=== PATIENT | female | born 1990 | race Caucasian/White ===

== ENCOUNTER 2024-05-06 12:34 | Emergency (ER) | payer MEDICAID, SELFPAY ==
[2024-05-06 12:35] VITALS: BP 114/70; PULSE 93; RESP 15; TEMP 36.2; O2SAT 97; BMI 36.7
--- NOTE | 2024-05-06 12:59 | RAD_ITS ---
STUDY: X-RAY - RIGHT ANKLE REASON FOR EXAM: Female, 34 years old. Injury 6 days ago. Lateral pain. TECHNIQUE: 3 view(s) of the ankle. COMPARISON: None. FINDINGS: Normal visualized distal tibia and fibula. Normal medial and lateral malleoli. Normal tibiotalar articulation and ankle mortise. Normal visualized talus and calcaneus. The visualized subtalar, talonavicular, calcaneocuboid and tarsal articulations are normal. The soft tissue structures are unremarkable. RAD/Ankle min 3 Views IMPRESSION: Normal x-ray examination of the ankle. Electronically Signed: Venkat Harrison MD at 13:43 EDT ,
--- NOTE | 2024-05-06 13:36 | EX.ED.DYSGE1 ---
HPI History of Present Illness Chief Complaint: Lower Extremity Injury Detail of Chief Complaint: Patient presents with ankle pain since the . Informant: patient Onset/Context/Timing Onset: Days Context: Sudden Onset Timing: Continuous Quality: Localized to the lateral aspect of the ankle. Location: Proximity of the anterior talofibular ligament Current Severity: Mild Maximum Severity: Moderate Worsened by: Movement and weightbearing Relieved by: Rest Associated Symptoms Associated Symptoms: Pain shooting up towards her knee Narrative Narrative: patient is a 34-year-old woman. She presents because of injury to her ankle. She had a plantar eversion mechanism injury on April 30. She jumped in the pool. She reports pain with movement. She denies prior history of trauma. Denies history of numbness or tingling in her foot or ankle. She had no direct trauma to her toes, foot, ankle or knee. Prior similar symptoms: No Recent Illness/Hospitalization: No PFSH PFSH Medical History no medical history Home Medications ?Medication ?Instructions ?Recorded ?Last Taken ?Type NK 05/06/24 Unknown History Allergy/AdvReac Type Severity Reaction Status Date / Time ibuprofen Allergy Mild Vomiting Verified 05/06/24 12:38 tramadol Allergy Mild Rash Verified 05/06/24 12:38 Social History Smoking Status: Current every day smoker tobacco type: cigarettes and e-cigarettes ROS ROS ED Constitutional Constitutional ED: Denies chills, fever(s), subjective or sweats Musculoskeletal Musculoskeletal: Reports other Details: Right ankle pain. ; Denies arthralgias, back pain, myalgias or neck pain Integumentary Denies rash Neurologic Neurologic: Denies paresthesias or weakness Hematologic/Lymphatic Hematologic/Lymphatic: Reports systems reviewed and no addt'l complaints, except as documented EXAM Physical Exam Const Vital Signs: 05/06/24 12:35 Temperature 97.2 F L Temperature Source Temporal Pulse Rate 93 Respiratory Rate 15 Blood Pressure 114/70 Blood Pressure Mean 84 Pulse Ox 97 Oxygen Delivery Method Room Air Positive well nourished and well developed General Appearance ED: well developed and NAD; Negative for pallor HEENT HEENT Narrative: Head is atraumatic and normocephalic. Ears normal. Eyes PERRL and EOMs intact bilaterally Chest Wall inspection of chest normal Cardio regular rate and regular rhythm Extremity normal to inspection Extremity Narrative: There is pain ovation over the anterior talofibular joint. There is no pain ovation over the lateral medial malleolus. There is no pain the patient's base of fifth metatarsal. There is no laxity drawer testing. DP and PT pulse are palpable. There is no soft tissue swelling noted of the foot. There may be slight swelling of the ankle. There is no pain ovation over the fibular head or the joint line of the right knee. Neuro oriented x3, CN's II-XII intact bilaterally and no sensory deficits noted Sensorium / Orientation: alert Motor Exam: strength 5/5 throughout Psych mental status grossly normal Skin no rashes or lesions noted, no wounds and skin turgor normal General Skin Exam: elasticity normal; Negative for jaundice or pallor MDM MDM MDM Narrative Medical decision making narrative: Suspect patient has an ankle sprain. Because she has had pain for 6 days with pain x-ray to rule out possible avulsion fracture of the tip of the lateral malleolus. Radiography Chest X-Ray - ED: Read by ED Physician (Three-view x-ray of the ankle was independent reviewed interpreted by me is negative. There is no fracture, subluxation or dislocation.) Discharge Plan Triage Chief Complaint: Lower Extremity Injury ED Provider: Asaf Howell Dx/Rx/DC Orders Clinical Impression: Sprain of anterior talofibular ligament of right ankle Instructions: ED Ankle Sprain (Adult) Prescriptions: No Action NK Primary Care Provider: Care Physician,No Primary Referrals: Care Physician,No Primary [Primary Care Provider] - Activity Restrictions/Additional Instructions: 1. Apply ice 4-6 times a day 2. Take Naprosyn or Tylenol or aspirin for your pain 3. Drawl the alphabet with your foot 4-6 times a day 4. You may hurt for an additional 1 to 2 weeks 5. If you are still having pain after 1 to 2 weeks follow-up with your doctor. The name your doctor is located on the insurance card [facility] [place] Print Language: Albanian Disposition Disposition: Home, Self Care
== END 2024-05-06 14:11 | disposition home or self-care (01) ==
PROVIDERS: Emergency Provider Emergency Medicine; Visit Provider Emergency Medicine
DX: S93.491A Sprain of other ligament of right ankle, initial encounter (principal); F17.210 Nicotine dependence, cigarettes, uncomplicated; F17.290 Nicotine dependence, other tobacco product, uncomplicated; X58.XXXA Exposure to other specified factors, initial encounter
CPT/HCPCS: 73610; 99282